=== PATIENT | female | born 1975 | race Caucasian/White ===

== ENCOUNTER → 2017-10-16 | Outpatient (CLI) | payer BC ==
--- NOTE | 2017-10-16 15:50 | Diagnostic Imaging Report ---
Left knee MRI without contrast. History: Knee pain. Decreased range of motion. Trauma. Prior surgery. Comparison: None. Technique: Multiplanar multi-sequence MRI of the knee without contrast. Findings: Medial compartment: There is a complex medial meniscus tear involving the posterior horn and body segments with a radial component at the posterior root. The medial meniscus is subluxed to the periphery. There is articular cartilage fraying and deep fissuring in the medial compartment with underlying bone marrow edema. There are peripheral marginal osteophytes. Lateral compartment: There is degeneration and fraying of the lateral meniscus. No lateral meniscus tear is seen. There is articular cartilage fraying and deep fissuring in the lateral compartment with underlying bone marrow edema. There are peripheral marginal osteophytes. Intercondylar notch: There is degeneration and scarring of the anterior cruciate ligament. The posterior cruciate ligament is intact. Patellofemoral compartment: There is articular cartilage fraying and deep fissuring in the patellofemoral compartment with mild underlying bone marrow edema. There are peripheral marginal osteophytes. Extensor mechanism: The quadriceps and patellar tendons are normal. Other findings: There is a joint effusion and synovitis. There is no acute fracture, subluxation or avascular necrosis. There is a lobulated septated Razo's cyst containing debris/loose bodies. IMPRESSION: Complex medial meniscus tear with radial component at the posterior root. There is associated degenerative arthrosis in the medial compartment of the knee. Degenerative arthrosis in the patellofemoral and lateral compartments of the knee. Joint effusion and synovitis. Signed by: Dr. Dennis Castellanos M.D. on 10/16/2017 3:46 PM
== END ==
LOC: MRI 13:49
PROVIDERS: ATTEND Specialist
DX: S83.242A Other tear of medial meniscus, current injury, left knee, initial encounter (principal); S83.282A Other tear of lateral meniscus, current injury, left knee, initial encounter
CPT/HCPCS: 81025

== ENCOUNTER → 2017-11-05 | Day surgery (SDC) | payer BC ==
[~2017-11-05] MED LIST: ACETAMINOPHEN 1000 MG/100 ML IV ONE; BUPIVACAINE 0.5%/EPI 30 ML SDV INJ ONE; CEFAZOLIN SOD 2 GM/D5W 50ML 50 ML IV ONE; DEXAMETHASONE SOD PHOS INJ 4 MG/ML VIAL ONE; FENTANYL CITRATE/PF 100MCG/2 ML INJ ONE; LEVOTHYROXINE112 MCG PO; LIDOCAINE HCL 2% LOCAL INJ 5 ML SDV VIAL INJ ONE; MELOXICAM7.5 MG PO; ONDANSETRON HCL INJ 2 MG/ML VIAL ONE; PHENYLEPHRINE HCL 1% 10 MG/ML VIAL ONE; PROPOFOL IV EMULSION 10 MG/ML 20 ML VIAL ONE; SCOPOLAMINE 1.5 MG PATCH ONE; SEVOFLURANE INHAL SOLN 250 ML PEN BTL ONE
--- OUTSIDE RECORDS SUMMARY | 2017-11-05 08:55 | XMS REPORT ---
[facility] Address Unknown Phone Unavailable Care Team Providers Care Associate Professor Of Literacy Name Role Phone XAVI VEE Unavailable Unavailable Problems This patient has no known problems. Allergies, Adverse Reactions, Alerts This patient has no known allergies or adverse reactions. Medications This patient has no known medications. Results Test Description Test Time Test Comments Text Results Atomic Results Result Comments MRI KNEE LEFT WO [place] [address] Patient Name: LUIZ HOOKS MR #: [id number] : 1975 Age/Sex: 42/F Req #: [id number] Adm Physician: Ordered by: XAVI VEE MD Report #: [id number] Location: MRI Room/Bed: Procedure: [id number] MRI/MRI KNEE LEFT WO Exam Date: Exam Time: REPORT STATUS: Signed Left knee MRI without contrast. History: Knee pain. Decreased range of motion. Trauma. Prior surgery. Comparison: None. Technique: Multiplanar multi-sequence MRI of the knee without contrast. Findings: Medial compartment: There is a complex medial meniscus tear involving the posterior horn and body segments with a radial component at the posterior root. The medial meniscus is subluxed to the periphery. There is articular cartilage fraying and deep fissuring in the medial compartment with underlying bone marrow edema. There are peripheral marginal osteophytes. Lateral compartment: There is degeneration and fraying of the lateral meniscus. No lateral meniscus tear is seen. There is articular cartilage fraying and deep fissuring in the lateral compartment with underlying bone marrow edema. There are peripheral marginal osteophytes. Intercondylar notch: There is degeneration and scarring of the anterior cruciate ligament. The posterior cruciate ligament is intact. Patellofemoral compartment: There is articular cartilage fraying and deep fissuring in the patellofemoral compartment with mild underlying bone marrow edema. There are peripheral marginal osteophytes. Extensor mechanism: The quadriceps and patellar tendons are normal. Other findings: There is a joint effusion and synovitis. There is no acute fracture, subluxation or avascular necrosis. There is a lobulated septated Razo's cyst containing debris/loose bodies. IMPRESSION: Complex medial meniscus tear with radial component at the posterior root. There is associated degenerative arthrosis in the medial compartment of the knee. Degenerative arthrosis in the patellofemoral and lateral compartments of the knee. Joint effusion and synovitis. Signed by: Dr. Dennis Castellanos M.D. on 10/16/2017 3:46 PM Dictated By: DENNIS CASTELLANOS MD, MD [id number] Transcribed By: MAKAYLA on 10/16/17 9300 COPY TO: XAVI VEE MD
--- NOTE | 2017-11-06 09:22 | Operative Report ---
DATE OF PROCEDURE: November 05, 2017 PREOPERATIVE DIAGNOSES 1. Left knee medial meniscus tear. 2. Left knee degenerative joint disease of the knee. POSTOPERATIVE DIAGNOSES 1. Left knee medial meniscus tear. 2. Left knee lateral meniscus tear. 3. Left knee degenerative joint disease of the knee. OPERATIONS/PROCEDURES PERFORMED 1. The patient underwent a left knee examination under anesthesia. 2. Left knee arthroscopy. 3. Left knee partial medial meniscectomy. 4. Left knee partial lateral meniscectomy. 5. Left knee chondroplasty of patella, the trochlea, the medial femoral condyle, the medial tibial plateau, the lateral femoral condyle, and lateral tibial plateau. NONPROFIT FUNDRAISER: None. ANESTHESIA: General endotracheal intubation anesthesia. IV FLUIDS: Per the anesthesia record. BRIEF DESCRIPTION OF THE PATIENT'S OPERATIVE PROCEDURE: Ms. Hernandez was taken to the operating room and placed in the supine position on the operating table. Following induction of general anesthesia, as well as endotracheal intubation, the patient's left lower extremity was examined under anesthesia. She was found to have a mild effusion within the knee joint, but otherwise ligamentously stable knee. The patient's lower extremity was prepped and draped in the standard surgical fashion. A 2-portal technique used to provide this patient arthroscopic evaluation of the knee joint. Examination of the suprapatellar pouch, medial and lateral gutters found no evidence of loose bodies. There was, however, significant chondromalacia of the patellar and trochlear surfaces. The scope was advanced in the medial compartment. Examination of the medial compartment again confronted significant chondromalacia of the medial femoral condyle. There was mild chondromalacia of the medial tibial plateau. There was a tear in the posterior horn and root of the medial meniscus. A combination of biting forceps and a motorized shaver were used to resect the torn portion of the meniscus. A chondroplasty of the medial femoral condyle and medial tibial plateau were performed at this time. Scope was then advanced into the intercondylar notch. Anterior cruciate ligament was identified and found to be intact. Scope was then advanced in lateral compartment, and there was a tear at the root of the lateral meniscus. There was also mild chondromalacia of the articulating surfaces. A combination of biting forceps and motorized shaver was used to resect the torn portion of the meniscus. Chondroplasties of the lateral femoral condyle and lateral tibial plateau were performed at this time. Scope was then placed in the suprapatellar pouch, and chondroplasties of the patella and trochlea were performed. The knee was deflated of its sterile normal saline. The portal sites were closed. The knee was injected with 0.5% Marcaine with epinephrine. Sterile dressings were applied. The patient was then awakened and taken to the postanesthesia care in stable condition. Job#: [id number] DENZEL
== END | disposition home or self-care (01) ==
LOC: OR 08:53
PROVIDERS: ATTEND Specialist
DX: S83.232A Complex tear of medial meniscus, current injury, left knee, initial encounter (principal); S83.282A Other tear of lateral meniscus, current injury, left knee, initial encounter; M17.12 Unilateral primary osteoarthritis, left knee; M22.2X2 Patellofemoral disorders, left knee; M22.42 Chondromalacia patellae, left knee; N28.89 Other specified disorders of kidney and ureter; G47.33 Obstructive sleep apnea (adult) (pediatric); E03.9 Hypothyroidism, unspecified; Q60.2 Renal agenesis, unspecified; X58.XXXA Exposure to other specified factors, initial encounter; Z68.42 Body mass index [BMI] 45.0-49.9, adult
CPT/HCPCS: 29880; 81025; J1100; J2001; J2370; J2405

== ENCOUNTER 2017-12-19 09:51 | Outpatient (RCR) | payer BC ==
[~2017-12-19 09:51] MED LIST changes: -ACETAMINOPHEN 1000 MG/100 ML IV ONE; -BUPIVACAINE 0.5%/EPI 30 ML SDV INJ ONE; -CEFAZOLIN SOD 2 GM/D5W 50ML 50 ML IV ONE; -DEXAMETHASONE SOD PHOS INJ 4 MG/ML VIAL ONE; -FENTANYL CITRATE/PF 100MCG/2 ML INJ ONE; -LIDOCAINE HCL 2% LOCAL INJ 5 ML SDV VIAL INJ ONE; -ONDANSETRON HCL INJ 2 MG/ML VIAL ONE; -PHENYLEPHRINE HCL 1% 10 MG/ML VIAL ONE; -PROPOFOL IV EMULSION 10 MG/ML 20 ML VIAL ONE; -SCOPOLAMINE 1.5 MG PATCH ONE; -SEVOFLURANE INHAL SOLN 250 ML PEN BTL ONE
== END 2017-12-22 ==
LOC: PT 09:51
PROVIDERS: ATTEND Specialist
DX: M25.562 Pain in left knee (principal); M25.662 Stiffness of left knee, not elsewhere classified; M62.81 Muscle weakness (generalized); R26.2 Difficulty in walking, not elsewhere classified
CPT/HCPCS: 97139

== ENCOUNTER 2018-01-21 16:46 | Outpatient (RCR) | payer BC | END 2018-01-22 | LOC: PT 16:46 | PROVIDERS: ATTEND Specialist | DX: M25.562 Pain in left knee (principal); M25.662 Stiffness of left knee, not elsewhere classified; R26.2 Difficulty in walking, not elsewhere classified; M62.81 Muscle weakness (generalized) ==

== ENCOUNTER 2018-02-13 08:53 | Outpatient (RCR) | payer BC | END 2018-02-21 | LOC: PT 08:53 | PROVIDERS: ATTEND Specialist | DX: M25.562 Pain in left knee (principal); M25.662 Stiffness of left knee, not elsewhere classified; R26.2 Difficulty in walking, not elsewhere classified; M62.81 Muscle weakness (generalized) ==

== ENCOUNTER → 2020-02-04 | Outpatient (CLI) | payer BC ==
--- NOTE | 2020-02-04 12:35 | Diagnostic Imaging Report ---
TECHNIQUE: Magnetic resonance imaging of the RIGHT KNEE was performed WITHOUT injected contrast. HISTORY: Lateral meniscus tear COMPARISON: None available. FINDINGS: LIGAMENTS AND TENDONS: ACL: Intact PCL: Intact Collateral ligaments: Intact Iliotibial band: Unremarkable Popliteal tendon: Intact Extensor mechanism: Intact JOINT: Menisci: Medial: Complex tearing of the posterior body and horn with dominant radial component and meniscal extrusion. Lateral: Degeneration without discrete tear. Articular Cartilage: Medial Compartment: Diffuse high-grade cartilage loss Lateral Compartment: Diffuse intermediate grade cartilage loss Patellofemoral Compartment: Diffuse high-grade cartilage loss with areas of full-thickness erosion Joint Fluid: Moderate joint effusion BONE: No focal or infiltrative bone marrow replacing abnormality. No acute fracture. SOFT TISSUES: Otherwise, unremarkable. IMPRESSION: Medial meniscus complex tearing body and posterior horn with dominant radial component causing meniscal extrusion. Tricompartment cartilage loss, most prominent patellofemoral compartment. Moderate joint effusion. Signed by: Dr. Moises Pierre M.D. on 02/04/2020 12:32 PM
== END ==
LOC: MRI 10:50
PROVIDERS: ATTEND Specialist
DX: S83.281A Other tear of lateral meniscus, current injury, right knee, initial encounter (principal)